=== PATIENT | male | born 1995 | race Caucasian/White ===

== ENCOUNTER 2018-10-23 23:20 | Emergency (ER) | payer OTHER ==
[~2018-10-23] VITALS: Ht 188 cm; Wt 86.2 kg
[2018-10-23 23:29] VITALS: BP 151/91
[2018-10-23] MEDS ORDERED: TYLENOL PM EX-1 EACH PO (23:32)
[2018-10-23] MEDS ORDERED: ULTRAM 50MG TAB50 MG PO (23:59)
[2018-10-23] MEDS ORDERED: AMOXICILLIN 50500 M1 PO (23:59)
[2018-10-23] MEDS ORDERED: IBUPROFEN 800800 M1 PO (23:59)
== END 2018-10-24 00:20 | disposition home or self-care (01) ==
LOC: ER 23:20
DX: K08.89 Other specified disorders of teeth and supporting structures (principal)